=== PATIENT | female | born 1985 | race Caucasian/White ===

== ENCOUNTER 2017-09-13 13:17 | Emergency (ER) | payer BC ==
[2017-09-13 13:25] VITALS: BP 137/81
[2017-09-13 13:51] LABS: CHLORIDE,CL 104 mmol/L (101-111); SODIUM,NA 135 mmol/L (135-145)
--- NOTE | 2017-09-13 15:31 | US ---
CLINICAL HISTORY: 32-year-old gravid 2 para 1 female who experienced small amount of "vaginal bleedin g" associated with raking. INTERPRETATION: Enlarged uterus with a single live early second trimester intrauterine gestation, obl ique lie and regular rapid heart rate 140 bpm. Healthy appearing placenta anteriorly corpus of the uterus appears to extend to the left of midline d own near the internal cervical os (measurement from leading edge of the placenta to the internal cerv ical os). NOTE: No sign of retroplacental hematoma or abruption in this patient who is reportedly 16 weeks 4 da ys by dates.
== END 2017-09-13 16:04 | disposition home or self-care (01) ==
LOC: DL.ED 13:17
DX: O46.92 Antepartum hemorrhage, unspecified, second trimester (principal); Z3A.17 17 weeks gestation of pregnancy
CPT/HCPCS: 36415; 76815; 80053; 80305; 81001; 84702; 85025; 99284

== ENCOUNTER 2018-01-29 06:08 | Inpatient (IN) | payer BC ==
[2018-01-29] MEDS: Lactated Ringers 1,000 ML IV SCH ×4 (06:30→18:08)
[2018-01-29] MEDS ORDERED: ePHEDrine 50 MG/ML SDV IVPUSH PRN (06:37)
[2018-01-29] MEDS ORDERED: Carboprost Tromethamine 250 MCG/1 ML Amp IM ONE (06:37)
[2018-01-29] MEDS ORDERED: Acetaminophen 325 MG Tab PO PRN (06:37)
[2018-01-29] MEDS ORDERED: Citric Acid/Sodium Citrate Solution 30 ML Cup PO ONE (06:37)
[2018-01-29] MEDS ORDERED: Naloxone 2 MG/2 ML Syringe IVPUSH PRN (06:37)
[2018-01-29] MEDS ORDERED: ceFAZolin 2 GM in Premix Bag 1 BAG IV ONE (06:37)
[2018-01-29] MEDS ORDERED: Acetaminophen/oxyCODONE 325-5 MG Tab PO PRN (06:37)
[2018-01-29] MEDS ORDERED: Methylergonovine 0.2 MG/1 ML Amp IM PRN (06:37)
[2018-01-29] MEDS ORDERED: Ondansetron 4 MG/2 ML SDV IV PRN (06:37)
[2018-01-29] MEDS ORDERED: diphenhydrAMINE 50 MG/ML SDV IVPUSH PRN (06:37)
[2018-01-29] MEDS ORDERED: Misoprostol 400 MCG (4 X 100 MCG TAB) RECTAL PRN (06:37)
[2018-01-29] MEDS ORDERED: Tranexamic Acid 1,000 MG in Sodium Chloride 0.9% 100 ML IV PRN (06:37)
[2018-01-29] MEDS ORDERED: Labetalol 20 MG/4 ML Syringe ONE (06:41)
[2018-01-29] MEDS ORDERED: Oxytocin/Normal Saline 30 UNITS/500 ML BAG IV SCH (06:45)
[2018-01-29] MEDS ORDERED: Labetalol 20 MG/4 ML Syringe IVPUSH ONE (06:45)
[2018-01-29] MEDS ORDERED: Oxytocin/Normal Saline 30 UNIT/500 ML BAG ONE ×3 (06:46→06:55)
[2018-01-29] MEDS: Simethicone 80 MG Tab.Chew PO SCH ×4 (10:19→20:51)
--- NOTE | 2018-01-29 11:07 | PN ---
DATE: 01/29/2018 SUBJECTIVE: The patient is coming out of the operating room after her repeat low transverse . LABORATORY DATA: Resulted except for urine protein/creatinine ratio. White cell count 13.4, hemoglobin 12.6, and platelets 263. HELLP labs remarkable for alkaline phosphatase minimally elevated at 175, creatinine being 0.5, and her urine revealed 100 protein, small occult blood, and urine protein/creatinine ratio is pending. ASSESSMENT AND PLAN: Postoperative day #0, status post repeat low transverse section with suspected gestational hypertension. Question preeclampsia but waiting labs, but as the patient has currently delivered and blood pressures have come down into more of a normal range, we will continue to follow clinically and closely. We will follow for any type preeclampsia signs, symptoms, or other concerns. [facility] /[id number]
[2018-01-29] MEDS: Ferrous Sulfate 325 MG Tab PO SCH (12:03)
[2018-01-29] MEDS: Prenatal Multivitamin with Calcium/Folic Acid/Iron Tab PO SCH (12:03)
[2018-01-29] MEDS: Famotidine 20 MG/2 ML SDV IVPUSH PRN (12:03)
[2018-01-29] MEDS ORDERED: diphenhydrAMINE 50 MG Cap PO ONE (13:20)
--- NOTE | 2018-01-29 13:42 | HP ---
DOS: 01/29/2018 Adrianna Jones is a 32-year-old, G2, P1-0-0-1, intrauterine at 36 and 1/7 weeks, confirmed with 8 and 5/7-week ultrasound who presents with vaginal leaking and contractions. HISTORY OF PRESENT ILLNESS: The patient states contractions started approximately at 2:30 a.m. on the date of admission, increasing in frequency and intensity to the point that they are rated 8 to 9/10, coming every 5 minutes, felt in the lower abdomen, radiating to the back. She notes leaking of clear vaginal fluid starting around 5:15 a.m., enough to soak through her clothes and pads and actively leaking upon admission. To put this in context, she is GBS negative, has a history of high blood pressure during previous per her history. Denies any headaches, visual changes, or upper abdominal pain, and has had a previous , request for a repeat low transverse and had an appointment next week with MRI SUPERVISOR to discuss tubal with . Records were called for and reviewed as below and supplemented by patient's history. OBSTETRICAL HISTORY: On 10/05/2015, delivered a female, 39 and 5/7 weeks, primary low transverse , weighing 3110 g. ANTEPARTUM LABORATORY DATA: ABO blood type O positive. Negative antibody. Rubella immune. Syphilis antibody nonreactive. Negative hepatitis B surface antigen. Negative hep C, HIV, GC, and Chlamydia. Wet prep within normal limits. One-hour GTT on 12/07/2017, was 99. GBS was negative on 01/25/2018. ALLERGIES: None. MEDICATIONS: 1. vitamins. 2. Lexapro. PAST MEDICAL/PAST SURGICAL HISTORY: Remarkable for abnormal Pap smears in the past; PCOS; tobacco dependence; and has had a history of tonsillectomy, laparoscopic appendectomy, and a previous as above. FAMILY HISTORY: Breast cancer in maternal aunt. Diabetes in father. Hypertension in father. Negative family history of anesthesia or bleeding problems, seizures, or thyroid disease. SOCIAL HISTORY: Lives with significant other, Gilberto, for the last 5 years. 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 She does smoke and no alcohol or drug use elicited. REVIEW OF SYSTEMS: Otherwise reviewed and felt to be noncontributory. OBJECTIVE: Vital Signs: Initial blood pressure 161/100, recheck 170/100 with stat labetalol called for thereafter; heart rate between 84 and 85; and temperature 98. Appearance: Female appears her stated age, acting appropriate for age, nontoxic in appearance, breathing through contractions but answering questions appropriately in between. HEENT: Head atraumatic. EOMs intact. PERRLA. No scleral icterus. No obvious otorrhea or rhinorrhea. Mucous membranes moist. Neck: No obvious tenderness. Lungs: Clear to auscultation bilaterally. No increased work of breathing. Heart: S1 and S2. Regular rate and rhythm. Abdomen: Gravid. Thierry indeterminate. Nontender and nondistended. Bowel sounds positive. No other organomegaly, pulsatile masses, or hernias. No rebound, rigidity, or guarding with Pfannenstiel scar noted. Genitourinary: Normal external female genitalia. Sterile speculum exam done. Positive for pooling and Nitrazine, ferning deferred. Vaginal exam thereafter revealed to be 5 plus cm, 100% effaced, -1 station, vertex suspected. Extremities: No peripheral edema. Deep tendon reflexes 3 to 4/4 bilaterally and symmetric in lower extremities. Psychiatric: Mood and affect are congruent. Judgment and insight are intact. Skin: Without any cyanosis, clubbing, or jaundice. INVESTIGATIONS: Labs are pending including PIH-type panel, urine for protein- creatinine ratio and urinalysis. heart tones are now in the 125s to 130s range. Tocometer when reading reveals contractions every 5 to 7 minutes. ASSESSMENT: 1. Intrauterine at 36 and 1/7 weeks, confirmed with 8 and 5/7-week ultrasound. 2. Spontaneous rupture of membranes at 5:15. 3. Active labor and advanced cervical dilation around 5 cm. 4. Previous , requests repeat low transverse . 5. Gestational hypertension, less severe, versus preeclampsia. At this point in time, labs are pending. Labetalol has been called for and been given. 6. Group B Streptococcus negative. 7. G2, P1-0-0-1. PLAN: We discussed with the patient she is not a transfer candidate due to her advanced cervical dilation and spontaneous rupture of membranes and would recommend proceeding with repeat low transverse . I did discuss with her risks, benefits, alternatives, and complications of including, but not limited to, infection, bleeding, damage to internal organs such as bowel, bladder, tubes, uterus, ovaries, sometimes fetus rarely needing a blood transfusion or further surgery, and rarer maternal or . She understands, agrees and wishes to proceed. Verbal and written consent were obtained. Questions were answered. We will proceed in a stat like fashion due to her advancing cervical dilation, spontaneous rupture of membranes, and other risk factors. I did discuss with the patient and her male partner the potential of needing transfer to higher level of care due to prematurity. At this point in time, she is not a transfer candidate. She is in active labor, has had spontaneous rupture of membranes, has had a previous , and needs a repeat low transverse . We will proceed as soon as crew is ready and available. [facility] /[id number] TUSHAR
[2018-01-29] MEDS: Ketorolac 30 MG/ML SDV IVPUSH SCH ×2 (13:48→19:45)
[2018-01-29] MEDS ORDERED: Lactated Ringers 1,000 ML IV ONE (13:50)
[2018-01-29] MEDS ORDERED: Dexamethasone 4 MG/ML SDV IV ONE (13:50)
[2018-01-29] MEDS ORDERED: Ondansetron 4 MG/2 ML SDV IV ONE (13:50)
[2018-01-29] MEDS ORDERED: Promethazine 25 MG/ML SDV IV ONE (13:50)
[2018-01-29] MEDS ORDERED: Ketorolac 30 MG/ML SDV IVPUSH ONE (13:50)
[2018-01-29] MEDS ORDERED: Morphine PF 1 MG/ML Amp IVPUSH ONE (13:50)
--- NOTE | 2018-01-29 13:58 | OR ---
DATE: 01/29/2018 PREOPERATIVE DIAGNOSES: 1. Intrauterine at 36 and 1/7 weeks, confirmed with an 8 and 5/7- week ultrasound. 2. Spontaneous rupture of membranes. 3. Active labor with advanced cervical dilation, being greater than 5 cm upon admission. 4. Previous , requests repeat low transverse . 5. Gestational hypertension versus preeclampsia. 6. Group B Streptococcus negative. 7. G2, P1-0-0-1. POSTOPERATIVE DIAGNOSES: 1. Intrauterine at 36 and 1/7 weeks, confirmed with an 8 and 5/7- week ultrasound, delivered. 2. Spontaneous rupture of membranes. 3. Active labor with advanced cervical dilation, being greater than 5 cm upon admission. 4. Previous , requests repeat low transverse . 5. Gestational hypertension versus preeclampsia. 6. Group B Streptococcus negative. 7. G2, P1-0-0-1. 8. Nuchal cord x1, reduced bluntly with delivery. PROCEDURE PERFORMED: Repeat low transverse Caesarean section. ASSISTANTS: 1. Owen Motta MD. 2. Brii Lamar MS-III. ANESTHESIA: Spinal. ESTIMATED BLOOD LOSS: 600 mL. INTRAVENOUS FLUIDS: 1000 mL lactated Ringer's and 300 mL of Pitocin. URINE OUTPUT: 30 mL and clear yellow. START: 7:41. UTERINE INCISION: 7:43. DELIVERY: 7:44. STOP: 8:08. FINDINGS: Female, scores of 8 and 9, weight pending. DESCRIPTION OF PROCEDURE IN DETAIL: After proper consent was obtained, the patient was brought to the operating room where spinal anesthetic was administered. A Allred was placed in preop under sterile conditions. The abdomen was prepped and draped in normal sterile fashion with the patient placed in supine position with a left lateral tilt. A skin incision was then made over the lower abdomen in a transverse Pfannenstiel-type fashion over the previous scar. This was carried down the fascia and scored in the midline. Subcutaneous tissue was raked laterally and bluntly; and the fascial incision was extended superiorly, inferiorly, and laterally with blunt technique. The rectus muscles were in the midline with blunt technique. Abdominal cavity was entered in a blunt technique. Incision was extended superiorly and inferiorly in a blunt technique. Alberto O retractor was then introduced and used. The lower uterine segment was identified, and a curvilinear incision was made on the lower uterine segment at 0743 hours. Uterus was entered sharply. Minimal clear fluid returned. Uterine incision was then extended in a transverse fashion using blunt technique. vertex was then delivered up from the pelvis and through the incision, followed by rest of the infant with minimal difficulty. Nuchal cord x1 was noted and reduced bluntly with delivery. Mouth and nares were suctioned. Cord was doubly clamped and cut, and the was brought over to the team. Then, approximately 10 mL of cord blood was obtained for labs. Placenta was then delivered with gentle cord traction and fundal massage. Uterus was then cleared of all blood clots and debris with lap sponge. Castañeda clamps were used to grasp the uterine incision; and this was closed in a running locked fashion and tied at lateral margins with 1-0 Vicryl. A second imbricating layer was then applied and tied at lateral margins with 1-0 Vicryl. First inspection of the uterine incision revealed hemostasis. Alberto O retractor was then removed; and paracolic gutters were cleared of all blood clots and debris with lap sponge. Anterior cul-de-sac was then irrigated copiously; and all blood clots were removed. Second and final inspection of the uterine incision and anterior cul-de-sac revealed hemostasis. Rectus muscles were then reapproximated in midline with [id number] stitch using 1-0 Vicryl. Subfascial tissue was found to be hemostatic. The fascia was closed in a running fashion, tied at lateral margins with 0 looped PDS. Subcutaneous tissue was irrigated copiously. Hemostasis was reassured. Skin was reapproximated with medium lico. Sterile Aquacel dressing was applied. The uterine fundus was firm and massaged at the conclusion of the case -2 below umbilicus. No immediate complications were noted. Sponge, lap, and needle counts were correct. The patient received 2 g of Ancef preoperatively, Pitocin per protocol, and will receive Toradol at the conclusion of the case for pain control. Mother and are currently stable at the time of dictation. [facility] /[id number]
[2018-01-29] MEDS ORDERED: Morphine 2 MG/ML Syringe IVPUSH PRN (20:59)
[2018-01-29] MEDS: Acetaminophen/oxyCODONE 325-5 MG Tab PO PRN (21:16)
[2018-01-29] MEDS: Docusate Sodium 100 MG Cap PO PRN (21:39)
[2018-01-30] MEDS: Acetaminophen/oxyCODONE 325-5 MG Tab PO PRN ×5 (01:07→21:15)
[2018-01-30] MEDS: Lactated Ringers 1,000 ML IV SCH (02:08)
[2018-01-30] MEDS: Ketorolac 30 MG/ML SDV IVPUSH SCH (02:09)
--- NOTE | 2018-01-30 08:57 | PN ---
DATE: 01/30/2018 SUBJECTIVE: Postoperative day #1, status post repeat low transverse section. No concerns per nursing staff. The patient notes lower abdominal tenderness that is mostly well controlled on current medications. No other concerns per patient. Allred catheter was removed this morning, and she denies difficulty voiding. She is ambulating and tolerating a general diet. She denies fevers or chills, lightheadedness or dizziness, shortness of breath or chest pain, nausea or vomiting, sharp abdominal pains or swelling or tenderness in any extremity. She is passing gas but has not had a bowel movement and notes mild lochia. OBJECTIVE: Vital Signs: Temperature 98.3, heart rate 66, blood pressure 138/86, respiratory rate 18, and oxygen saturation 97% on room air. General: Alert, pleasant, and in no acute distress. Heart: Regular rate and rhythm. S1 and S2. Lungs: Clear to auscultation bilaterally with normal respiratory effort. Abdomen: Soft, mildly tender to palpation in the lower abdomen, nondistended. The uterus is firm and two fingerbreadths above the umbilicus. No excessive tenderness by palpation. Aquacel dressing is clean, dry, and intact. Neurologic: No obvious neurologic deficits. Extremities: No erythema, edema, or tenderness in any extremity. Skin: Warm, dry, and well perfused. LABORATORY DATA: Laboratory data drawn this morning. White blood cell count 11.4, hemoglobin 10.2, and platelet count 212. ASSESSMENT: 1. Postoperative day #1, status post repeat low transverse section. 2. Intrauterine at 36 and 1/7 weeks' gestation, confirmed with an 8 and 5/7 weeks' ultrasound. 3. Previous , requests repeat low transverse . 4. preeclampsia diagnosed after delivery-will follow for any severe signs or symptoms 5. Group B streptococcus negative. 6. G2, P1-0-0-1. 7. Non-reassuring status, nuchal cord x1, reduced bluntly at delivery. 8. Maternal anemia, asymptomatic. PLAN: Continue routine and postoperative cares. Please see orders for further details. The plan has been discussed with the patient. She expressed understanding and is in agreement, and all of her questions were answered. We will continue to follow closely and anticipate discharge in two days on , 02/01/2018. The history, physical, assessment and plan are per Dr. Munoz; and this note is being scribed for Dr. Munoz. seen and agreed-BLAS [facility]ACEY /[id number] MTDD
[2018-01-30] MEDS: Prenatal Multivitamin with Calcium/Folic Acid/Iron Tab PO SCH (10:10)
[2018-01-30] MEDS: Ferrous Sulfate 325 MG Tab PO SCH (10:10)
[2018-01-30] MEDS: Simethicone 80 MG Tab.Chew PO SCH ×4 (10:11→21:14)
[2018-01-30] MEDS: Docusate Sodium 100 MG Cap PO PRN ×2 (10:14→21:15)
[2018-01-30] MEDS: Ibuprofen 800 MG Tab PO PRN ×2 (11:14→21:15)
[2018-01-30] MEDS: Famotidine 20 MG/2 ML SDV IVPUSH PRN (11:14)
[2018-01-31] MEDS: Acetaminophen/oxyCODONE 325-5 MG Tab PO PRN ×6 (01:15→21:48)
[2018-01-31] MEDS: Ibuprofen 800 MG Tab PO PRN ×2 (05:23→13:45)
--- NOTE | 2018-01-31 08:33 | PN ---
DATE: 01/31/2018 SUBJECTIVE: Postoperative day #2, status post repeat low transverse section. No concerns per nursing staff. The patient notes that she felt warm yesterday and feels cold today with no other symptoms and no malaise. She feels that her pain is mostly well controlled on current medications. She is ambulating and tolerating a general diet. She denies fevers or chills, shortness of breath or chest pain, nausea or vomiting, sharp abdominal pains, difficulty urinating, or swelling or tenderness in any extremity. She is passing gas, did not have a bowel movement, and notes mild lochia that is improving. She does note some lightheadedness immediately when she stands up. OBJECTIVE/PHYSICAL EXAMINATION: Vital Signs: Temperature 97.7 and the patient has remained afebrile overnight; heart rate 69; blood pressure 138/87, her blood pressures tend to run in the 130s to 140s over 70s to 90s; respiratory rate 16; and oxygen saturation 100% on room air. General: Alert, pleasant, in no acute distress. Heart: Regular rate and rhythm. S1 and S2. Lungs: Clear to auscultation bilaterally with normal respiratory effort. Abdomen: Soft, minimally tender to palpation in the lower abdomen, nondistended. The uterus is firm and two fingerbreadths above the umbilicus. No excessive tenderness by palpation. Aquacel dressing is dry and intact. Minimal shadowing noted on the left side of the dressing, not saturated. Neurologic: No obvious neurologic deficits. Extremities: No erythema, edema, or tenderness in any extremity. Skin: Warm, dry, and well perfused. ASSESSMENT: 1. Postoperative day #2, status post repeat low transverse section. 2. Intrauterine at 36 and 1/7 weeks' gestation, confirmed with an 8 and 5/7-week ultrasound. 3. Previous . Requests a repeat low transverse . 4. Preeclampsia, diagnosed after delivery. We will continue to follow for any severe signs or symptoms. 5. Group B streptococcus negative. 6. G2, P1-0-0-1. 7. Non-reassuring status, nuchal cord x1, reduced bluntly at delivery. 8. Maternal anemia. PLAN: Continue routine and postoperative cares. We will repeat a CBC tomorrow morning before discharge. Please see orders for further details. The plan has been discussed with the patient. She expressed understanding and is in agreement. All of her questions were answered. We will continue to follow closely and anticipate discharge tomorrow, 02/01/2018. The history, physical, assessment and plan are per Dr. Munoz; and this note is being scribed for Dr. Munoz. seen and agreed-DCW/ [facility] /[id number] TUSHAR
[2018-01-31] MEDS: Prenatal Multivitamin with Calcium/Folic Acid/Iron Tab PO SCH (09:45)
[2018-01-31] MEDS: Ferrous Sulfate 325 MG Tab PO SCH (09:45)
[2018-01-31] MEDS: Docusate Sodium 100 MG Cap PO PRN ×2 (09:45→21:47)
[2018-01-31] MEDS: Simethicone 80 MG Tab.Chew PO SCH ×4 (09:50→21:48)
[2018-02-01] MEDS: Ibuprofen 800 MG Tab PO PRN (01:50)
[2018-02-01] MEDS: Acetaminophen/oxyCODONE 325-5 MG Tab PO PRN ×2 (01:50→05:43)
[2018-02-01] MEDS: Docusate Sodium 100 MG Cap PO PRN (08:52)
[2018-02-01] MEDS: Prenatal Multivitamin with Calcium/Folic Acid/Iron Tab PO SCH (08:52)
[2018-02-01] MEDS: Simethicone 80 MG Tab.Chew PO SCH (08:52)
[2018-02-01] MEDS: Ferrous Sulfate 325 MG Tab PO SCH (08:53)
--- NOTE | 2018-02-01 11:19 | DISCH ---
ADMIT DIAGNOSES: 1. Intrauterine at 36 and 1/7 weeks, confirmed with 8 and 5/7 week ultrasound. 2. Spontaneous rupture of membranes. 3. Active labor. 4. Advanced cervical dilation. 5. Preeclampsia, diagnosed after delivery. 6. Group B streptococcus negative. 7. G2, P1-0-0-1. 8. Previous , requests repeat low transverse . DISCHARGE DIAGNOSES: 1. Intrauterine at 36 and 1/7 weeks, confirmed with 8 and 5/7 week ultrasound, delivered. 2. Spontaneous rupture of membranes. 3. Active labor. 4. Advanced cervical dilation. 5. Preeclampsia, diagnosed after delivery. 6. Group B streptococcus negative. 7. G2, P1-0-0-1. 8. Previous , requests repeat low transverse . 9. Nuchal cord x1 reduced bluntly with delivery. PROCEDURE PERFORMED: Repeat low transverse on date of admission. PROCEDURE PERFORMED: Adithya Munoz MD HISTORY OF PRESENT ILLNESS: Please see H and P. SUMMARY OF HOSPITAL COURSE: The patient was admitted on the above date with the above diagnoses and was in active labor with advancing cervical dilation. She had gestational hypertension and labs were drawn, but not available until after delivery, which did reveal preeclampsia. She went on to have a repeat low transverse because of her active labor and not a transfer candidate with advanced cervical dilation yielding a female with scores 8 and 9, weighing 2070 g (4 pounds 9 ounces). Please see op note for further details. EBL was 600 mL. This was done under spinal anesthetic. Postoperative day #1 and #2, please see progress note. Postoperative day #3, date of discharge, the patient was tolerating p.o., ambulating, urinating, and passing flatus, and requesting discharge. She denies any headaches, visual changes, or abdominal pain. PHYSICAL EXAMINATION: Vital Signs: Last set of vitals updated and listed in the chart; temperature 97.7 heart rate 72, blood pressure 140/96, respiratory rate 16. Lungs: Clear to auscultation bilaterally. Heart: S1 and S2. Regular rate and rhythm Pelvic: Firm uterus around the umbilicus. Aquacel dressing has minimal shadowing. Nothing increasing in size and no saturation. Extremities: No peripheral edema. Deep tendon reflexes 1 to 2/4 bilaterally and symmetric in lower extremities. DISCHARGE LABORATORY DATA: Date of discharge, white cell count 8.5, hemoglobin 11.5, platelets 248. CONDITION ON DISCHARGE COMPARED TO CONDITION ON ADMISSION: Improved. DISCHARGE INSTRUCTIONS: 1. Diet: As tolerated. 2. Activity: No lifting more than 20 pounds, no sit-ups, straining, and pelvic rest for the next 6 weeks with immediate return to fertility discussed with the patient. 3. Reasons to return or go to the emergency room were discussed with the patient in detail including, but not limited to, temperature greater than 100.4, foul-smelling discharge, red hot tender breasts, increased vaginal bleeding, or to present with any headaches, visual changes, or upper abdominal pain. 4. Follow up tomorrow 02/02/2018, with her baby for a blood pressure check/preeclampsia check. In addition, will follow up on 02/05/2018, with Dr. Munoz in the clinic with her baby for staple removal and re-evaluation of her blood pressure. I did discuss the importance of followup and ramifications of not doing so as well as reasons to return or go to the emergency room in regard to her . The patient understands and agrees with the above treatment plan. DISCHARGE MEDICATIONS: 1. [id number] Tylenol or ibuprofen for pain. 2. Percocet 5/325, one to two q.6 hours p.r.n., #30, no refills. Discussed the use of this medications, adverse and wanted effects, as well as precautions with driving. [facility] /[id number]
[2018-02-01 11:42] VITALS: BP 143/91
== END 2018-02-01 11:45 | disposition home or self-care (01) | DRG 540 ==
LOC: DL.OBCHECK 06:08 → DL.OB 06:37 → OBSVTOIN 07:44
PROVIDERS: ADMIT Family Medicine; ATTEND Family Medicine
PROC: 10D00Z1 Extraction of Products of Conception, Low, Open Approach (ICD-10-PCS; principal; 2018-01-29)
DX: O34.211 Maternal care for low transverse scar from previous cesarean delivery (principal); O69.81X0 Labor and delivery complicated by cord around neck, without compression, not applicable or unspecified; O14.94 Unspecified pre-eclampsia, complicating childbirth; Z3A.36 36 weeks gestation of pregnancy; Z37.0 Single live birth; O99.02 Anemia complicating childbirth; D64.9 Anemia, unspecified
CPT/HCPCS: 36415; 81003; 82565; 82570; 83615; 84075; 84156; 84450; 84460; 84520; 84550; 85027; 86850; 86900; 86901; 94010; A9270-GY; J0690; J1100; J1885; J2274; J2405; J2550; J2590; J3490; J7120; Q0163; S0028